=== PATIENT | female | born 1995 | race African-American/Black ===

== ENCOUNTER 2018-07-23 16:00 | Emergency (ER) | payer SELFPAY ==
[~2018-07-23] VITALS: Ht 162.6 cm; Wt 89.9 kg
[2018-07-23 17:42] LABS: Urine Bacteria FEW /hpf (None Seen); Urine Blood Negative /uL (Negative); Urine Hyaline Cast FEW /lpf (0 - 2); Urine Mucus FEW (None Seen); Urine Specific Gravity 1.025 (1.001-1.035); Urine WBC 5 /hpf (0 - 5)
[2018-07-23 18:46] VITALS: BP 128/80
== END 2018-07-23 19:33 | disposition home or self-care (01) ==
LOC: ER 16:06
DX: J06.9 Acute upper respiratory infection, unspecified (principal)
CPT/HCPCS: 81001; 81025